=== PATIENT | male | born 1990 | race Caucasian/White ===

== ENCOUNTER 2017-04-17 10:00 | Inpatient (IN) | payer OTHER ==
[~2017-04-17] VITALS: Ht 167.6 cm; Wt 72.6 kg
--- NOTE | ~2017-04-17 | PN ---
Unit #: [id number] #: [id number] Patient: ROBERT HERMAN [id number] [facility] [address] [place] [address] [id number] MR#: [id number] NAME: ROBERT HERMAN ROOM: P214 Age: 26 Sex: M Admission Date: 04/17/2017 : 1990 Attending Physician: Zach Watts M.D. Admitting Physician: Zach Watts M.D. Primary Care Physician: Primary Care Physician Jana GUSMAN PROGRESS NOTES DATE 04/20/2017 DISCUSSION Robert is a 26-year-old male, seen on 04/20/2017. The patient interviewed, chart reviewed, and obtained information from the nursing staff. The patient reports that medication is helping him, making progress. The patient was able to attend group, but somewhat anxious, nervous. REVIEW OF SYSTEMS Complete review of systems unremarkable. MENTAL STATUS EXAMINATION General appearance: Patient dressed casually. Attention span and concentration, fair. Oriented in time, place, and person. Mood and affect, labile. Speech, monotone. Thought process, concrete. The patient denied any thoughts of harming self or others. Recent and remote memory, poor. Insight and judgment, poor. DIAGNOSES 1. Mood disorder, NOS. 2. Amphetamine use disorder, moderate. ASSESSMENT/PLAN Advised to continue with the current medication and therapeutic protocol, and if needed consider further adjustment of medication. Dictated by... Siddhartha Morris/mia TD: 04/21/2017 05:54 JOB #: [id number] Unit #: [id number] #: [id number] Patient: ROBERT HERMAN JMANGELA PROGRESS NOTES Page 1 of 1 X Zach Watts MD PROGRESS NOTE
--- NOTE | ~2017-04-17 | HP ---
Unit #: [id number] #: [id number] Patient: ROBERT HERMAN [id number] [facility] [address] [place] [address] [id number] I MR#: [id number] NAME: ROBERT HERMAN ROOM: P214 Age: 26 Sex: M Admission Date: 04/17/2017 : 1990 Attending Physician: Zach Watts M.D. Admitting Physician: Zach Watts M.D. Primary Care Physician: Primary Care Physician No HISTORY AND PHYSICAL HISTORY OF PRESENT ILLNESS The patient is a 26-year-old male who states he is here because he has been using methamphetamine. Also, has a history of severe anxiety and depression. PAST MEDICAL HISTORY None. PAST SURGICAL HISTORY None. ALLERGIES None. SOCIAL HISTORY Positive for smoking methamphetamine. FAMILY HISTORY Noncontributory. REVIEW OF SYSTEMS CONSTITUTIONAL: No fever or chills. HEENT: Denies any sore throat, ear pain or runny nose. CARDIOVASCULAR: Denies chest pain, irregular heart rhythm or palpitations. CHEST: Denies shortness of breath or cough. No hemoptysis. GASTROINTESTINAL: Denies nausea, vomiting, diarrhea or chronic constipation. ENDOCRINE: Denies history of increased thirst or urination. No recent significant weight loss or gain. GENITOURINARY: Denies dysuria, frequency, or hematuria. SKIN: Denies any rashes. HEMATOLOGIC: Denies history of increased bleeding or bruising. MUSCULOSKELETAL: Denies any hot, swollen joints. No generalized muscle pain. NEUROLOGIC: Denies problems with vision or speech. No frequent, severe headaches. No numbness, tingling or weakness in any extremities. Denies loss of bladder or bowel control. CURRENT MEDICATIONS None. PHYSICAL EXAMINATION GENERAL: Alert, oriented, in no acute distress. Unit #: [id number] #: [id number] Patient: ROBERT HERMAN VITAL SIGNS: Blood pressure 143/87, heart rate 103, respirations 20, temperature 98.6. HEIGHT: 5 feet 9 inches. WEIGHT: 174 pounds. SKIN: A blister to his left thumb from smoking methamphetamine. The pipe got too hot for patient. Tattoo to the midline abdomen. Bruise to the left thigh and a scar to the right popliteal space. HEENT: Normocephalic. TMs not viewed. Oral and nasal passages clear. Conjunctivae clear. PERRLA. EOMs intact. NECK: Supple without lymphadenopathy or thyromegaly. HEART: Regular rate and rhythm without murmur. LUNGS: Clear. ABDOMEN: Soft, nontender, without masses or hepatosplenomegaly. : Not done. EXTREMITIES: No evidence of cyanosis, clubbing or edema. Moves all without focal deficit. NEUROLOGICAL: Grossly within normal limits. Cranial Nerves: II: Visual vallejo are intact. III, IV AND : Extraocular movements are intact. Pupils are equal, round and reactive to light. V: Facial sensation is grossly normal. VII: Facial movements and expression are normal. VIII: Auditory acuity grossly intact. IX, X: Uvula is midline. Phonation is normal. XI: Patient shrugs shoulders and turns head normally. XII: Tongue protrudes in the midline. Sensory and Motor Function: Sensory and motor sensation is grossly normal. Motor: moves all extremities well. Coordination: Gait is normal. Deep Tendon Reflexes: Intact. IMPRESSION Psychiatric admission. RECOMMENDATIONS PSYCHIATRIC: Per psychiatrist. MEDICAL: No contraindication to participate in facility's activities. MEDICAL PROGNOSIS Good. Dictated by... Won Ordonez/zak TD: 04/17/2017 20:13 JOB #: [id number] Unit #: [id number] #: [id number] Patient: ROBERT HERMAN HISTORY AND PHYSICAL Page 1 of 1 X Estefanía Sotomayor APR X HISTORY AND PHYSICAL
--- NOTE | ~2017-04-17 | DS ---
Unit #: [id number] #: [id number] Patient: ROBERT HERMAN [id number] [facility] [address] [place] [address] [id number] I MR#: [id number] NAME: ROBERT HERMAN ROOM: [facility] Age: 26 Sex: M Admission Date: 04/17/2017 : 1990 Discharge Date: 04/21/2017 Attending Physician: Zach Watts M.D. Primary Care Physician: Primary Care Physician No DISCHARGE SUMMARY REASON FOR ADMISSION Depression, substance abuse. DIAGNOSTIC STUDIES Laboratory data none. HOSPITAL COURSE The patient was admitted to the inpatient unit on April 17 and discharged on 04/21/2017. The patient was treated with group therapy, individual therapy, chemical dependency group. The patient was responsive to treatment. The patient was discharged with the plan to follow up in outpatient program. DISCHARGE DIAGNOSES New Site I Major depressive disorder, recurrent, severe, F33.2. Amphetamine use disorder, severe, F15.20. New Site II Deferred. New Site III None. New Site IV Psychosocial stressors. New Site V INSTRUCTIONS TO PATIENT The patient is to follow up in outpatient clinic as well as social services specialist. DISCHARGE MEDICATIONS 1. Celexa 20 mg daily for depression 2. Vistaril 25 mg three times a day for anxiety 3. Trazodone 100 mg at bedtime for sleep CONDITION AT DISCHARGE The patient is pleasant and cooperative, denied any psychotic symptoms or any suicidal ideation. PROGNOSIS Guarded. DIET AND ACTIVITY As tolerated. Unit #: [id number] #: [id number] Patient: ROBERT HERMAN Dictated by... Siddhartha Morris/mia TD: 04/22/2017 08:11 JOB #: [id number] DISCHARGE SUMMARY Page 1 of 1 X Zach Watts MD X DISCHARGE SUMMARY
--- NOTE | ~2017-04-17 | PN ---
Unit #: [id number] #: [id number] Patient: ROBERT HERMAN [id number] [facility] [address] [place] [address] [id number] MR#: [id number] NAME: ROBERT HERMAN ROOM: [facility] Age: 26 Sex: M Admission Date: 04/17/2017 : 1990 Attending Physician: Zach Watts M.D. Admitting Physician: Zach Watts M.D. Primary Care Physician: Primary Care Physician Jana DUARTE NOTES DATE 04/18/2017 DISCUSSION Robert is a 26-year-old male, seen on 04/18/2017. The patient interviewed, chart reviewed, and obtained information from the nursing staff. The patient was compliant and cooperative. Mood labile, sad and dysphoric mood. The patient reported having trouble sleep, anxiety, depression, passive SI. REVIEW OF SYSTEMS Complete review of systems unremarkable. MENTAL STATUS EXAMINATION General appearance: Patient dressed casually. Attention span and concentration, fair. Oriented in time, place, and person. Mood and affect, labile. Speech, monotone. Thought process, concrete. The patient denied any thoughts of harming self or others. Recent and remote memory, poor. Insight and judgment, poor. DIAGNOSES 1. Major depressive disorder, recurrent, severe. 2. Amphetamine abuse, moderate. ASSESSMENT/PLAN Advised to start the patient on Celexa 20 mg daily for depression, Vistaril 25 mg three times a day for anxiety, and trazodone 100 mg at bedtime for sleep, if needed consider further adjustment of medication. Dictated by... Siddhartha Morris/mia TD: 04/20/2017 04:58 JOB #: [id number] Unit #: [id number] #: [id number] Patient: ROBERT HERMAN JMANGELA PROGRESS NOTES Page 1 of 1 X Zach Watts MD PROGRESS NOTE
--- NOTE | ~2017-04-17 | PA ---
Unit #: [id number] #: [id number] Patient: ROBERT HERMAN [id number] [facility] [address] [place] [address] [id number] I MR#: [id number] NAME: ROBERT HERMAN ROOM: P214 Age: 26 Sex: M Admission Date: 04/17/2017 : 1990 Date of Assessment: Attending Physician: Zach Watts M.D. Admitting Physician: Zach Watts M.D. PSYCHIATRIC ASSESSMENT INFORMANTS The patient reliability, fair informant and chart reliability, good. CHIEF COMPLAINT Depression, anxiety, and methamphetamine abuse. HISTORY OF PRESENT ILLNESS Mr. Robert Herman is a 26-year-old male, presented with the above-mentioned complaint. The patient admitted from [facility]. Reported that he is suicidal, feeling sad and depressed. Reported he relapsed on methamphetamine and having a hard time managing his emotions. The patient reported severe anxiety, trouble sleeping, depression, and suicidal ideation. Denied any homicidal ideation. Denied any psychotic symptom. Reported feeling hopeless and worthless. Age of onset of alcohol 16; history of crack cocaine use in the past; and amphetamine, age of onset 20. Longest period of sobriety 5 years, last period of sobriety 1 month ago. The patient reported a history of blackouts. No history of any HIV, hepatitis, or withdrawal symptoms, but history of IV drug use. The patient reported feeling sad, depressed, and anxious. Needing inpatient admission at this time for psychiatric stabilization. PAST PSYCHIATRIC HISTORY Remarkable for history of previous treatment at [facility] at age 20 for depression and suicidal ideation. FAMILY HISTORY AND SOCIAL HISTORY The patient currently homeless. No known history of any psychiatric illness known in the family. No history of any developmental delays. No history of abuse. MEDICAL HISTORY Musculoskeletal; muscle strength and tone, no atrophy or abnormal movement. Gait normal. MEDICATION HISTORY None. ALLERGIES No known drug allergies. SUBSTANCE ABUSE HISTORY Please see above. Unit #: [id number] #: [id number] Patient: ROBERT HERMAN REVIEW OF SYSTEMS HEENT: Eyes, clear. Ears, nose, mouth, and throat; clear. CARDIOVASCULAR: Unremarkable. RESPIRATORY: Unremarkable. GI: Unremarkable. : Unremarkable. SKIN: Unremarkable. LYMPH NODE: Unremarkable. NEUROLOGIC: Unremarkable. ENDOCRINE: Unremarkable. HEMATOLOGIC: Unremarkable. ALLERGIC/IMMUNOLOGIC: Unremarkable. MUSCULOSKELETAL: Muscle strength and tone, no atrophy or abnormal movement. Gait normal. MENTAL STATUS EXAMINATION CONSTITUTIONAL: Measurement of vital signs; temperature 97.6, heart rate 116, respiratory rate 19, and blood pressure 124/91. Height 5 feet 6 inches and weight 160 pounds. GENERAL APPEARANCE: The patient dressed casually. The patient did not show any facial deformity. MUSCULOSKELETAL: Please see above. PSYCHIATRIC EXAMINATION Description of speech; regular rate, normal volume, normal articulation, coherent, and spontaneous. Description of thought process, goal directed. Description of association, intact. Description of abnormal psychotic thinking; the patient denied any hallucinations or delusions, but suicidal ideation, depression, anxiety, and substance abuse. Description of the patient's judgment: Concerning everyday activity, poor. Social situation, poor. Concerning psychiatric condition, poor. Complete mental status examination; oriented in time, place, and person. Recent and remote memory, fair. Attention span and concentration, fair. Language, able to name object and repeat phrases. Fund of knowledge, aware of current event and passive vocabulary intact. Mood and affect, sad and dysphoric. Insight and judgment, fair to poor. ASSETS AND LIABILITIES Assets, the patient is articulate and able to take care of his ADL. Liability; history of depression, anxiety, and substance abuse. ADMITTING DIAGNOSES Psychiatric: Major depressive disorder, recurrent, severe, F33.2 and amphetamine use disorder, severe, F15.20. Secondary diagnosis: Deferred. Medical diagnosis: None. Stressors: Psychosocial stressor. PSYCHIATRIC PLAN AND TREATMENT GOAL AND DISCHARGE PLAN 1. Advised to admit the patient on the inpatient unit. Provide safe, supportive, and structured environment. 2. Ordered labs; CBC, CMP, UA, and UDS. 3. Precaution for self-harm. The patient to start with detox monitoring. Advised Vistaril for anxiety and trazodone for sleep. The patient to Unit #: [id number] #: [id number] Patient: ROBERT HERMAN attend all the programing, group therapy, individual therapy, and chemical dependency group. TREATMENT GOAL To attain euthymic mood, gain insight into his problem, and learn coping skills. DISCHARGE PLAN Plan to stabilize the patient and consider followup in outpatient program. ESTIMATED LENGTH OF STAY 3 to 5 days. Dictated by... Siddhartha Morris/chang TD: 04/18/2017 16:52 JOB #: [id number] PSYCHIATRIC ASSESSMENT Page 1 of 1 X Zach Watts MD PSYCHIATRIC ASSESSMENT
--- NOTE | ~2017-04-17 | PN ---
Unit #: [id number] #: [id number] Patient: ROBERT HERMAN [id number] [facility] [address] [place] [address] [id number] I MR#: [id number] NAME: ROBERT HERMAN ROOM: [facility] Age: 26 Sex: M Admission Date: 04/17/2017 : 1990 Attending Physician: Zach Watts M.D. Admitting Physician: Zach Watts M.D. Primary Care Physician: Primary Care Physician Jana GUSMAN PROGRESS NOTES DATE OF SERVICE 04/19/2017 DISCUSSION Robert is a 26-year-old male seen on 04/19/2017. The patient interviewed, chart reviewed. Obtained information from nursing staff. The patient withdrawn, isolative, guarded. Compliant with medication. No side effects from medication. Tolerating medication fairly well. Complete Review of Systems: Unremarkable. MENTAL STATUS EXAMINATION General Appearance: The patient dressed casually. Attention span, concentration: Fair. Oriented in place and person. Mood and affect labile. Speech: Monotone. Thought process: [place]. The patient denied any thoughts of harming self or others. Recent and remote memory: Poor. Insight and judgment: Poor. DIAGNOSES 1. Mood disorder not otherwise specified. 2. Cannabis abuse, moderate. ASSESSMENT/PLAN Advised to continue with current medication and therapeutic protocol. If needed, consider further adjustment of medication. Dictated by... Siddhartha Morris/zina TD: 04/20/2017 14:44 JOB #: [id number] Unit #: [id number] #: [id number] Patient: ROBERT HERMAN PROGRESS NOTES Page 1 of 1 X Zach Watts MD X PROGRESS NOTE
== END 2017-04-21 13:00 | disposition home or self-care (01) | DRG 885 ==
LOC: P2S 14:43
DX: F33.2 Major depressive disorder, recurrent severe without psychotic features (principal); F15.20 Other stimulant dependence, uncomplicated